=== PATIENT | female | born 1965 ===

== ENCOUNTER 2016-10-30 22:49 | Emergency (ER) | payer OTHER ==
[2016-10-30 22:56] VITALS: BP 142/81; PULSE 82; RESP 16; TEMP 98.1; O2SAT 100
[2016-10-30] MEDS ORDERED: TDAP Vaccine 0.5 mL Syr IM ONE (23:47)
--- NOTE | 2016-10-31 00:23 | ED PDOC ---
Upper Extremity Pain/Injury Time Seen by Provider: 10/30/16 23:28 Chief Complaint (Nursing): Finger,Hand,&Wrist Chief Complaint (Provider): right hand 2nd digit injury History Per: Patient History/Exam Limitations: no limitations Onset/Duration Of Symptoms: Days (1 week) Current Symptoms Are (Timing): Still Present Additional History Per: Patient Additional Complaint(s): 50 y/o female presents for eval of injury to 2nd digit right hand x 1 week. Patient states she cut finger on meat stocker. She states since then she noticed "sleepy" sensation to tip of finger and that her nail of that finger looks more pale than the others. Denies numbness/weakness right upper extremity , limitation of movement. Tetanus not up to date. Past Medical History Reviewed: Historical Data, Nursing Documentation, Vital Signs Vital Signs: Last Vital Signs Temp 98.1 F 10/30/16 22:52 Pulse 82 10/30/16 22:52 Resp 16 10/30/16 22:52 BP 142/81 10/30/16 22:52 Pulse Ox 100 10/30/16 22:52 - Medical History PMH: No Chronic Diseases - Family History Family History: States: Unknown Family Hx - Immunization History Hx Tetanus Toxoid Vaccination: No Hx Influenza Vaccination: No Hx Pneumococcal Vaccination: No - Allergies Allergies/Adverse Reactions: Allergies Allergy/AdvReac Type Severity Reaction Status Date / Time No Known Allergies Allergy Verified 05/16/16 11:15 Review of Systems ROS Statement: Except As Marked, All Systems Reviewed And Found Negative Neurological: Positive for: Numbness (right hand 2nd digit) Physical Exam - Reviewed Nursing Documentation Reviewed: Yes Vital Signs Reviewed: Yes - Physical Exam Appears: Positive for: Well, Non-toxic, No Acute Distress Head Exam: Positive for: ATRAUMATIC, NORMAL INSPECTION, NORMOCEPHALIC Skin: Positive for: Normal Color Pulses-Radial (L): 2+ Pulses-Radial (R): 2+ Extremity: Positive for: Normal ROM, Capillary Refill, Other (skin flap avulsion noted volar distal lateral aspect 2nd digit right hand, mild surrounding pallor. No tenderness. No drainage, swelling, necrosis, or surrounding erythema noted. Nail bed appears pale when 2nd digit in full extension; however color restored upon relaxing finger, <2 sec b/l. No temp change) Neurologic/Psych: Positive for: Motor/Sensory Deficits (decreased sensation palmar distal right hand 2nd digit) - ECG O2 Sat by Pulse Oximetry: 100 - Progress ED Course And Treament: wound irrigated with NS, bacitracin applied, bandaged. Patient educated on findings, advised neosporin daily. Follow up hand specialist. Return to ED for worsening/concerning symptoms. Disposition - Clinical Impression Clinical Impression: Skin avulsion, Paresthesia - Patient ED Disposition Is Patient to be Admitted: No Counseled Patient/Family Regarding: Diagnosis, Need For Followup - Disposition Referrals: [facility] [Outside] Jb Paris MD [Staff Provider] - Disposition: Routine/Home Disposition Time: 00:26 Condition: STABLE Instructions: Paresthesia (ED), Skin Avulsion (ED) Print Language: MACANESE
== END 2016-10-31 00:40 | disposition home or self-care (01) ==
LOC: H.ER 22:49
DX: R20.2 Paresthesia of skin (principal); T14.8 Other injury of unspecified body region; W31.89XA Contact with other specified machinery, initial encounter; Y93.9 Activity, unspecified; R20.9 Unspecified disturbances of skin sensation; Z23 Encounter for immunization